=== PATIENT | female | born 1965 | race Asian ===

== ENCOUNTER 2019-04-20 19:36 | Emergency (ER) | payer BC ==
[~2019-04-20] VITALS: Ht 162.6 cm; Wt 53.5 kg
--- NOTE | 2019-04-20 19:40 | NUR ---
Placed in room 08 . 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 To gown for exam. Side rails up. Report given to Anat KNIGHT.
[2019-04-20 19:44] VITALS: BP_SYST 131
--- NOTE | 2019-04-20 19:50 | NUR ---
Pt A&Ox4. Pt presents to ER with and son with c/o dizziness. Pt states dizziness started at 1800 today and states she has pressure on in her head but it is worse on the left side. Pt states when she closes eyes, moves her head from side to side and forward the dizziness gets worse. Pt states no occurance of nausea or vomiting. Pt states headache and pain is 6/10. Pt states light makes headache worse. Will continue to monitor.
--- NOTE | 2019-04-20 20:22 | NUR ---
ER Dr. Taylor at bedside examining patient.
[2019-04-20] MEDS ORDERED: NACL 0.9% 1,000 ML IV ONE (20:32)
[2019-04-20 20:44] LABS: BILIRUBIN,URINE NEGATIVE (NEGATIVE); BLOOD, URINE NEGATIVE (NEGATIVE); CLARITY/URINE CLEAR (CLEAR); COLOR,URINE YELLOW (YELLOW); GLUCOSE,URINE NEGATIVE (NEGATIVE); KETONES,URINE NEGATIVE (NEGATIVE); LEUKOCYTE ESTERASE ,URINE NEGATIVE (NEGATIVE); NITRITE, URINE NEGATIVE (NEGATIVE); PROTEIN URINE NEGATIVE (NEGATIVE); UROBILINOGEN,URINE 0.2 (0.2-1.0)
[2019-04-20] MEDS ORDERED: MECLIZINE HCL 25 MG TABLET (ANITVERT) PO ONE (20:45)
[2019-04-20 21:04] LABS: BARBITURATE, URINE NEGATIVE (NEG <=200); BENZODIAZEPINE, URINE NEGATIVE (NEG <=150); CANNABINOID, URINE NEGATIVE (NEG <=50); COCAINE, URINE NEGATIVE (NEG <=150); METHAMPHETAMINES SCREEN,URINE NEGATIVE (NEG <=500); OPIATE, URINE NEGATIVE (NEG <=100); PHENCYCLIDINE SCREEN,URINE NEGATIVE (NEG <=25); UR TRICYCLIC ANTIDEPRESSANTS NEGATIVE (NEG <=300); URINE AMPHETAMINE NEGATIVE (NEG <=500); URINE METHADONE NEGATIVE (NEG <=200); URINE OXYCODONE SCREEN NEGATIVE (NEG <=100); URINE PROPOXYPHENE SCREEN NEGATIVE (NEG <=300)
[2019-04-20 21:12] LABS: BASOPHILS # (AUTO) 0.1 K/uL (0.0-0.2); BASOPHILS % (AUTO) 0.7 % (0.0-2.0); EOSINOPHILS # (AUTO) 0.3 K/uL (0.0-0.4); EOSINOPHILS % (AUTO) 3.8 % (0.0-4.0); HEMATOCRIT 38.7 % (36-48); LYMPHOCYTES # (AUTO) 2.3 K/uL (1.0-5.5); LYMPHOCYTES % (AUTO) 33.3 % (20.5-51.5); MEAN CORPUSCULAR HEMOGLOBIN 30 pg (27-31); MEAN CORPUSCULAR HGB CONC 34 % (32-36); MEAN CORPUSCULAR VOLUME 89 fL (79.0-98.0); MONOCYTES # (AUTO) 0.5 K/uL (0.0-1.0); MONOCYTES % (AUTO) 6.9 % (1.7-9.3); NEUTROPHILS # (AUTO) 3.9 K/uL (1.8-7.7); NEUTROPHILS % (AUTO) 55.3 % (40.0-70.0); PLATELET COUNT (AUTO) 199 K/uL (130-430); RED BLOOD CELL COUNT(AUTO) 4.33 MIL/uL (4.2-6.2); RED CELL DISTRIBUTION WIDTH 13.4 % (9.0-15.0)
[2019-04-20 21:18] LABS: CALCIUM 8.8 mg/dL (8.4-11.0); CREATININE 0.87 mg/dL (0.55-1.30); POTASSIUM 4.3 mmol/L (3.5-5.1)
--- NOTE | 2019-04-20 21:20 | NUR ---
Radiology at bedside.
[2019-04-20 21:22] LABS: PROTHROMBIN TIME 9.9 SECS (9.5-12.5)
[2019-04-20 21:29] LABS: ALBUMIN 3.8 g/dL (3.4-4.8); TOTAL BILIRUBIN 0.3 mg/dL (0.0-1.0)
--- NOTE | 2019-04-20 21:33 | NUR ---
Patient went to CT in stable condition.
--- NOTE | 2019-04-20 21:41 | NUR ---
Pt returned from CT via [facility] in stable condition.
--- NOTE | 2019-04-20 22:04 | NUR ---
ER Dr. Taylor at bedside explaining results to patient.
--- NOTE | 2019-04-20 22:24 | NUR ---
Patient given written and verbal discharge instructions and verbalizes understanding. ER MD Taylor discussed with patient the results and treatment provided. Patient in stable condition. ID arm band removed. IV catheter removed intact and dressing applied, no active bleeding. Rx of Vertigo given. Patient educated on pain management and to follow up with PMD. Pain Scale 0. Opportunity for questions provided and answered. Medication side effect fact sheet provided.
[2019-04-20 22:25] VITALS: BP_SYST 147
== END 2019-04-20 22:24 | disposition home or self-care (01) ==
LOC: SED 19:36
DX: H81.10 Benign paroxysmal vertigo, unspecified ear (principal); J45.909 Unspecified asthma, uncomplicated; Z91.013 Allergy to seafood
CPT/HCPCS: 36415; 70450; 71045; 80053; 80307; 81003; 81025; 84484; 85025; 85610; 85730; 93005; 96360; 99284; J7030; J8597